=== PATIENT | male | born 1980 | race Hispanic/Latino ===

== ENCOUNTER 2017-12-04 01:04 | Inpatient (IN) | payer OTHER ==
[~2017-12-04] VITALS: Ht 167.6 cm; Wt 59.0 kg
[~2017-12-04 01:04] MED LIST: FENO160T16 PO; LEVO500T2 PO; METF-527 PO
[2017-12-04 01:30] LABS: BASOPHILS % (AUTO) 0.9 % (0.0-5.0); EOSINOPHILS % (AUTO) 5.1 % (0.0-8.0); HEMATOCRIT 36.3 % (42-54); LYMPHOCYTES % (AUTO) 42.4 % (21.0-51.0); MEAN CORPUSCULAR HEMOGLOBIN 28.6 pg (27.0-33.0); MEAN CORPUSCULAR HGB CONC 32.6 g/dL (32.0-36.0); MEAN CORPUSCULAR VOLUME 87.9 fL (79-99); MONOCYTES % (AUTO) 8.3 % (3.0-13.0); NEUTROPHILS % (AUTO) 43.3 % (40.0-77.0); PLATELET COUNT (AUTO) 263 K/uL (130-400); RED BLOOD CELL COUNT(AUTO) 4.13 MIL/uL (4.50-6.20); WHITE BLOOD COUNT (AUTO) 7.9 K/uL (4.8-10.8)
[2017-12-04 01:32] LABS: APPEARANCE,URINE Clear (CLEAR); BILIRUBIN,URINE Negative (NEGATIVE); COLOR,URINE Yellow (YELLOW); GLUCOSE, URINE (UA) >=1000 mg/dL (NEGATIVE); KETONES,URINE Negative (NEGATIVE); LEUKOCYTE ESTERASE ,URINE Negative (NEGATIVE); NITRATE,URINE Negative (NEGATIVE); OCCULT BLOOD,URINE Negative (NEGATIVE); PH,URINE 5.5 (5.0-8.0); PROTEIN,URINE Trace (NEGATIVE); UROBILINOGEN,URINE 0.2 mg/dL (0.2-1.0)
[2017-12-04 01:39] LABS: AMPHET/METH SCREEN,URINE NEGATIVE (NEGATIVE); BARBITURATE SCREEN, URINE NEGATIVE (NEGATIVE); BENZODIAZEPINES SCREEN,URINE NEGATIVE (NEGATIVE); CANNABINOID SCREEN,URINE NEGATIVE (NEGATIVE); COCAINE SCREEN,URINE NEGATIVE (NEGATIVE); OPIATE SCREEN,URINE NEGATIVE (NEGATIVE); PHENCYCLIDINE SCREEN,URINE NEGATIVE (NEGATIVE)
[2017-12-04 01:41] LABS: CREATININE 1.6 mg/dL (0.5-1.5); POTASSIUM 3.6 mmol/L (3.5-5.1)
[2017-12-04 01:43] LABS: BACTERIA,URINE None Seen /HPF (None Seen); MUCUS,URINE Rare LPF (None Seen); RBC,URINE 0-1 /HPF (0-1); SQUAMOUS EPITHELIAL CELL,UR Rare /HPF (0-2); WBC,URINE None Seen /HPF (0-1); YEAST,URINE BUDDING None Seen /HPF (None Seen)
[2017-12-04 01:53] LABS: ALBUMIN 3.8 g/dL (3.5-5.0); BILIRUBIN,TOTAL 0.1 mg/dL (0.2-1.0); CREATINE KINASE MB 1.9 ng/mL (0.5-3.6); TOTAL PROTEIN, SERUM 7.9 g/dL (6.0-8.3)
[2017-12-04] MEDS ORDERED: SODIUM CHLORIDE 0.9% 1000ML 1,000 ML IV ONE (03:12)
[2017-12-04] MEDS ORDERED: ACETAMINOPHEN 325 MG TAB PO PRN (07:45)
[2017-12-04 08:43] LABS: BASOPHILS % (AUTO) 1.2 % (0.0-5.0); EOSINOPHILS % (AUTO) 2.8 % (0.0-8.0); HEMATOCRIT 32.7 % (42-54); LYMPHOCYTES % (AUTO) 21.6 % (21.0-51.0); MEAN CORPUSCULAR HEMOGLOBIN 29.6 pg (27.0-33.0); MEAN CORPUSCULAR HGB CONC 33.9 g/dL (32.0-36.0); MEAN CORPUSCULAR VOLUME 87.4 fL (79-99); MONOCYTES % (AUTO) 3.6 % (3.0-13.0); NEUTROPHILS % (AUTO) 70.8 % (40.0-77.0); PLATELET COUNT (AUTO) 233 K/uL (130-400); RED BLOOD CELL COUNT(AUTO) 3.74 MIL/uL (4.50-6.20); RED CELL DISTRIBUTION WIDTH 12.7 % (11.0-15.5); WHITE BLOOD COUNT (AUTO) 8.4 K/uL (4.8-10.8)
[2017-12-04 08:47] VITALS: BP 106/56
[2017-12-04 08:57] LABS: CREATININE 1.3 mg/dL (0.5-1.5); POTASSIUM 4.4 mmol/L (3.5-5.1)
[2017-12-04 09:03] LABS: MAGNESIUM 1.6 mg/dL (1.80-2.40)
[2017-12-04] MEDS: ASPIRIN 81MG TAB.CHEW PO SCH (09:42)
[2017-12-04 10:52] VITALS: BP 104/56
[2017-12-04] MEDS ORDERED: INSU100I21 SQ (11:06)
[2017-12-04] MEDS ORDERED: PANT40TA25 PO (11:06)
[2017-12-04] MEDS ORDERED: INSU200I SQ (11:06)
[2017-12-04] MEDS: INSULIN R PO SS1 SQ SCH ×3 (11:41→21:00)
[2017-12-04 16:01] VITALS: BP 105/61
[2017-12-04 16:07] VITALS: BP 104/56
[2017-12-04 16:55] LABS: CREATINE KINASE MB 1.4 ng/mL (0.5-3.6); CREATINE KINASE, TOTAL 89 U/L (21-232); MYOGLOBIN 37 ng/mL (10-92); TROPONIN I < 0.04 ng/mL (0.00-0.06)
[2017-12-04] MEDS: MAGNESIUM 2GM PREMIX 50ML 50 ML IV SCH (17:30)
[2017-12-04 19:35] VITALS: BP 107/69
[2017-12-04] MEDS ORDERED: GLUCAGON 1MG KIT 1 MG ML IM PRN (22:00)
[2017-12-04] MEDS ORDERED: DEXTROSE 50%-WATER 50 ML DISP.SYRIN IV PRN (22:00)
[2017-12-04] MEDS: SODIUM CHLORIDE 0.9% 1000ML 1,000 ML IV SCH (23:44)
[2017-12-04 23:52] VITALS: BP 119/78
[2017-12-05] VITALS (9 sets, daily range): BP systolic 75–135; BP diastolic 49–79
[2017-12-05 04:01] LABS: HEMATOCRIT 33.4 % (42-54); MEAN CORPUSCULAR HEMOGLOBIN 28.7 pg (27.0-33.0); MEAN CORPUSCULAR VOLUME 86.8 fL (79-99); NUCLEATED RED BLOOD CELLS 0.1 % (0.0-0.19); PLATELET COUNT (AUTO) 243 K/uL (130-400); RED BLOOD CELL COUNT(AUTO) 3.84 MIL/uL (4.50-6.20); RED CELL DISTRIBUTION WIDTH 12.7 % (11.0-15.5); WHITE BLOOD COUNT (AUTO) 6.8 K/uL (4.8-10.8)
[2017-12-05 04:28] LABS: CREATININE 1.2 mg/dL (0.5-1.5); MAGNESIUM 1.8 mg/dL (1.80-2.40); POTASSIUM 3.9 mmol/L (3.5-5.1)
[2017-12-05] MEDS: MAGNESIUM 2GM PREMIX 50ML 50 ML IV SCH (05:46)
[2017-12-05] MEDS: INSULIN HUMULIN R 100 UNIT/ML 3ML SQ SCH ×4 (06:55→19:51)
[2017-12-05] MEDS: ASPIRIN 81MG TAB.CHEW PO SCH (08:11)
[2017-12-05] MEDS: SODIUM CHLORIDE 0.9% 1000ML 1,000 ML IV SCH (11:23)
[2017-12-05] MEDS: INSULIN GLARGINE 100 UNITS/ML 10 ML VIAL SQ SCH (19:53)
[2017-12-06 04:00] VITALS: BP 133/88
[2017-12-06] MEDS: INSULIN HUMULIN R 100 UNIT/ML 3ML SQ SCH ×4 (06:03→19:54)
[2017-12-06 07:00] VITALS: BP 83/47
[2017-12-06] MEDS: ASPIRIN 81MG TAB.CHEW PO SCH (08:17)
[2017-12-06 11:00] VITALS: BP 116/73
[2017-12-06] MEDS: SODIUM CHLORIDE 0.9% 1000ML 1,000 ML IV SCH ×2 (14:00)
[2017-12-06 14:58] VITALS: BP_SYST 119; BP_SYST 138; BP_SYST 83; BP_DIAS 50; BP_DIAS 71; BP_DIAS 87
[2017-12-06 19:00] VITALS: BP 82/49
[2017-12-06] MEDS: INSULIN GLARGINE 100 UNITS/ML 10 ML VIAL SQ SCH (19:55)
[2017-12-06 23:00] VITALS: BP 105/63
[2017-12-07] VITALS (7 sets, daily range): BP systolic 70–128; BP diastolic 37–77
[2017-12-07] MEDS: SODIUM CHLORIDE 0.9% 1000ML 1,000 ML IV SCH ×2 (02:33→16:40)
[2017-12-07] MEDS: INSULIN HUMULIN R 100 UNIT/ML 3ML SQ SCH ×4 (05:58→21:47)
[2017-12-07] MEDS: ASPIRIN 81MG TAB.CHEW PO SCH (09:17)
[2017-12-07] MEDS ORDERED: COSYNTROPIN 0.25 MG VIAL IVP SCH (15:30)
[2017-12-07] MEDS: INSULIN GLARGINE 100 UNITS/ML 10 ML VIAL SQ SCH (21:00)
[2017-12-08 03:00] VITALS: BP_SYST 114; BP_SYST 73; BP_DIAS 46; BP_DIAS 69
[2017-12-08] MEDS: SODIUM CHLORIDE 0.9% 1000ML 1,000 ML IV SCH (06:00)
[2017-12-08] MEDS: INSULIN HUMULIN R 100 UNIT/ML 3ML SQ SCH ×4 (06:39→21:00)
[2017-12-08 07:51] VITALS: BP_SYST 68; BP_SYST 95; BP_DIAS 34; BP_DIAS 50
[2017-12-08] MEDS: ASPIRIN 81MG TAB.CHEW PO SCH (10:26)
[2017-12-08 11:35] VITALS: BP_SYST 103; BP_SYST 59; BP_DIAS 33; BP_DIAS 53
[2017-12-08 16:00] VITALS: BP 131/79
[2017-12-08 19:23] VITALS: BP 101/61
[2017-12-08] MEDS: INSULIN GLARGINE 100 UNITS/ML 10 ML VIAL SQ SCH (21:00)
[2017-12-08] MEDS ORDERED: FLUDROCORTISONE ACETATE 0.1 MG TABLET PO ONE (21:00)
[2017-12-08 23:27] VITALS: BP 117/70
[2017-12-09] VITALS (9 sets, daily range): BP systolic 59–120; BP diastolic 35–73
[2017-12-09] MEDS: INSULIN HUMULIN R 100 UNIT/ML 3ML SQ SCH ×5 (06:26→21:00)
[2017-12-09] MEDS: ASPIRIN 81MG TAB.CHEW PO SCH (09:32)
[2017-12-09] MEDS: FLUDROCORTISONE ACETATE 0.1 MG TABLET PO SCH (09:32)
[2017-12-09] MEDS: INSULIN GLARGINE 100 UNITS/ML 10 ML VIAL SQ SCH (21:00)
[2017-12-10] VITALS (7 sets, daily range): BP systolic 53–140; BP diastolic 28–84
[2017-12-10] MEDS: INSULIN HUMULIN R 100 UNIT/ML 3ML SQ SCH ×4 (05:51→22:14)
[2017-12-10] MEDS: ASPIRIN 81MG TAB.CHEW PO SCH (08:48)
[2017-12-10] MEDS: FLUDROCORTISONE ACETATE 0.1 MG TABLET PO SCH (08:48)
[2017-12-10] MEDS: MIDODRINE HCL 5 MG TABLET PO SCH ×3 (16:48→23:34)
[2017-12-10] MEDS: INSULIN GLARGINE 100 UNITS/ML 10 ML VIAL SQ SCH ×2 (21:00→22:10)
[2017-12-11 03:34] VITALS: BP 125/76
[2017-12-11] MEDS: MIDODRINE HCL 5 MG TABLET PO SCH ×4 (04:29→16:30)
[2017-12-11 04:31] VITALS: BP_SYST 73; BP_SYST 78; BP_DIAS 25; BP_DIAS 43
[2017-12-11] MEDS: INSULIN HUMULIN R 100 UNIT/ML 3ML SQ SCH ×3 (05:26→16:13)
[2017-12-11 07:49] VITALS: BP 99/56
[2017-12-11] MEDS: ASPIRIN 81MG TAB.CHEW PO SCH (09:18)
[2017-12-11] MEDS: FLUDROCORTISONE ACETATE 0.1 MG TABLET PO SCH (09:18)
[2017-12-11 11:28] VITALS: BP_SYST 101; BP_SYST 59; BP_DIAS 22; BP_DIAS 62
[2017-12-11 17:10] VITALS: BP_SYST 120; BP_SYST 54; BP_DIAS 41; BP_DIAS 67
[2017-12-11 19:00] VITALS: BP 132/90
== END 2017-12-11 20:10 | disposition left against medical advice (07) | DRG 74 ==
LOC: EDH 01:04 → EDHIP 07:10 → 2DH 08:34
PROVIDERS: ADMIT Internal Medicine; ATTEND Internal Medicine
PROC: 3E0234Z Introduction of Serum, Toxoid and Vaccine into Muscle, Percutaneous Approach (ICD-10-PCS; principal; 2017-12-04)
DX: G90.8 Other disorders of autonomic nervous system (principal); I95.1 Orthostatic hypotension; G90.1 Familial dysautonomia [Riley-Day]; E11.9 Type 2 diabetes mellitus without complications; E78.5 Hyperlipidemia, unspecified; I10 Essential (primary) hypertension; Z79.4 Long term (current) use of insulin; Z23 Encounter for immunization
CPT/HCPCS: 36415; 71045; 80048; 80053; 80305; 81001; 82088; 82533; 82550; 82553; 82948; 83735; 83874; 84484; 85025; 85027; 93005; J0834; J1815; J3475; J7030; J7070; Q2038

== ENCOUNTER 2018-03-30 22:13 | Emergency (ER) | payer OTHER ==
[~2018-03-30 22:13] MED LIST changes: -FENO160T16 PO; +INSU100I21 SQ; +INSU200I SQ; -LEVO500T2 PO; +PANT40TA25 PO
[2018-03-30] MEDS ORDERED: CLINDAMYCIN HCL 150 MG CAP ONE (22:51)
[2018-03-30] MEDS ORDERED: IBUPROFEN 600 MG TABLET ONE (22:51)
== END 2018-03-30 22:58 | disposition home or self-care (01) ==
LOC: EDH 22:13
DX: L03.312 Cellulitis of back [any part except buttock and flank] (principal); E11.9 Type 2 diabetes mellitus without complications; I95.9 Hypotension, unspecified; Z79.4 Long term (current) use of insulin

== ENCOUNTER → 2021-10-10 | Outpatient (CLI) | payer OTHER ==
[~2021-10-10] MED LIST changes: -PANT40TA25 PO; +PANT40TA54 PO
== END | disposition home or self-care (01) ==
LOC: LAB 10:47
PROVIDERS: ATTEND Internal Medicine Cardiovascular Disease
DX: R06.00 Dyspnea, unspecified (principal)
CPT/HCPCS: 36415; 83880